=== PATIENT | female | born 1985 | race Caucasian/White ===

== ENCOUNTER 2019-04-14 16:43 | Emergency (ER) | payer OTHER, BC, MEDICAID ==
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
[2019-04-14 18:39] VITALS: BP 142/86; PULSE 99
== END 2019-04-14 17:58 | disposition home or self-care (01) ==
LOC: FB.ED 16:43
DX: S43.402A Unspecified sprain of left shoulder joint, initial encounter (principal); S00.83XA Contusion of other part of head, initial encounter; S80.12XA Contusion of left lower leg, initial encounter; S80.11XA Contusion of right lower leg, initial encounter; F32.9 Major depressive disorder, single episode, unspecified; Z88.2 Allergy status to sulfonamides; Z88.5 Allergy status to narcotic agent; Z79.899 Other long term (current) drug therapy; V44.5XXA Car driver injured in collision with heavy transport vehicle or bus in traffic accident, initial encounter; Y92.410 Unspecified street and highway as the place of occurrence of the external cause
CPT/HCPCS: 99283

== ENCOUNTER 2019-05-30 17:23 | Emergency (ER) | payer BC, MEDICAID ==
[2019-05-30] MEDS ORDERED: Lidocaine 2% 20 ML MDV INFILT ONE (17:24)
[2019-05-30 18:30] VITALS: BP 111/68; PULSE 78
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
== END 2019-05-30 17:56 | disposition home or self-care (01) ==
LOC: FB.ED 17:23
DX: S61.411A Laceration without foreign body of right hand, initial encounter (principal); K21.9 Gastro-esophageal reflux disease without esophagitis; F41.9 Anxiety disorder, unspecified; F32.9 Major depressive disorder, single episode, unspecified; E66.9 Obesity, unspecified; F17.210 Nicotine dependence, cigarettes, uncomplicated; Z68.33 Body mass index [BMI] 33.0-33.9, adult; Z88.2 Allergy status to sulfonamides; Z88.8 Allergy status to other drugs, medicaments and biological substances; Z79.899 Other long term (current) drug therapy; W23.0XXA Caught, crushed, jammed, or pinched between moving objects, initial encounter
CPT/HCPCS: 12001; 99282; J2001

== ENCOUNTER 2019-07-03 13:31 | Inpatient (IN) | payer BC, MEDICAID ==
[2019-07-03] MEDS ORDERED: Ketorolac 30 MG/ML SDV IVPUSH ONE ×2 (13:57→15:58)
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
[2019-07-03] MEDS ORDERED: Iopamidol 755 Mg/ML 100 ML Bottle IV ONE (16:22)
[2019-07-03] MEDS ORDERED: Acetaminophen/HYDROcodone 325-5 MG Tab PO ONE (17:01)
[2019-07-03] MEDS ORDERED: Meperidine PF 100 MG/ML Syringe IV ONE ×2 (17:46→20:09)
[2019-07-03] MEDS ORDERED: Acetaminophen/HYDROcodone 325-5 MG Tab PO PRN (20:09)
[2019-07-03] MEDS ORDERED: diphenhydrAMINE 50 MG Cap PO ONE (20:31)
[2019-07-03] MEDS ORDERED: Sodium Chloride 0.9% 1,000 ML IV SCH (21:15)
[2019-07-03] MEDS ORDERED: diphenhydrAMINE 50 MG Cap ONE (21:40)
[2019-07-03] MEDS: Meperidine PF 50 MG/ML Syringe IVPUSH ONE (23:43)
[2019-07-04] MEDS: Sodium Chloride 0.9% 1,000 ML IV SCH ×3 (01:32→18:18)
[2019-07-04] MEDS ORDERED: diphenhydrAMINE 50 MG Cap PO ONE (02:29)
[2019-07-04] MEDS ORDERED: Meperidine PF 75 MG/ML Syringe IV ONE (06:15)
[2019-07-04] MEDS ORDERED: Sodium Chloride 0.9% 500 ML IV ONE (06:17)
[2019-07-04] MEDS ORDERED: Meperidine PF 50 MG/ML Syringe ONE (06:40)
[2019-07-04] MEDS: Meperidine PF 50 MG/ML Syringe IVPUSH ONE (06:47)
[2019-07-04] MEDS ORDERED: Meperidine PF 50 MG/ML Syringe IV ONE (07:00)
[2019-07-04] MEDS ORDERED: Iopamidol 755 Mg/ML 100 ML Bottle IV ONE (07:59)
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
[2019-07-04] MEDS ORDERED: fentaNYL 100 MCG/2 ML SDV IVPUSH PRN (09:23)
[2019-07-04] MEDS ORDERED: Naloxone 0.4 MG/ML SDV IVPUSH PRN (09:24)
[2019-07-04] MEDS: fentaNYL/Normal Saline 300 MCG/30 ML PCA Vial IV SCH ×2 (10:02→22:51)
[2019-07-05] MEDS: Sodium Chloride 0.9% 1,000 ML IV SCH ×2 (04:46→15:01)
[2019-07-05] MEDS ORDERED: Bisacodyl 10 MG Supp RECTAL ONE (07:46)
--- NOTE | 2019-07-05 07:46 | PCM.SURGPN ---
- General Info Date of Service: 07/05/19 POD#: 0 Functional Status: Reports: Pain Controlled, Ambulating, Urinating, Other ( notes constipation ) - Review of Systems Pulmonary: Reports: No Symptoms Cardiovascular: Reports: No Symptoms Gastrointestinal: Reports: No Symptoms - Patient Data Vitals - Most Recent: Last Vital Signs Temp 98.2 F 07/05/19 04:00 Pulse 79 07/05/19 04:00 Resp 17 07/05/19 04:00 BP 101/53 L 07/05/19 04:00 Pulse Ox 95 07/05/19 06:00 Weight - Most Recent: 94.393 kg I&O - Last 24 Hours: Intake & Output 07/04/19 07/05/19 07/05/19 22:59 06:59 14:59 Intake Total 417 756 Output Total 300 Balance 417 456 Lab Results Last 24 Hrs: Laboratory Results - last 24 hr 07/04/19 07/05/19 Range/Units 06:27 06:15 WBC 4.7 (4.5-12.0) X10-3/uL RBC 3.41 (3.23-5.20) x10(6)uL Hgb 8.6 L (11.5-15.5) g/dL Hct 26.8 L (30.0-51.3) % MCV 78.8 L (80-96) fL MCH 25.2 L (27.7-33.6) pg MCHC 32.0 L (32.2-35.4) g/dL RDW 13.4 (11.5-15.5) % Plt Count 209 (125-369) X10(3)uL MPV 8.0 (7.4-10.4) fL Neut % (Auto) 67.8 (46-82) % Lymph % (Auto) 25.3 (13-37) % [place] % (Auto) 4.6 (4-12) % Eos % (Auto) 2 (1.0-5.0) % Baso % (Auto) 0 (0-2) % Neut # (Auto) 3.2 (1.6-8.3) # Lymph # (Auto) 1.2 (0.6-5.0) # [place] # (Auto) 0.2 (0.0-1.3) # Eos # (Auto) 0.1 (0.0-0.8) # Baso # (Auto) 0.0 (0.0-0.2) # Blood Type B POSITIVE Gel Antibody Screen Negative Stephen Results Last 24 Hrs: Microbiology 07/03/19 18:44 Urine Culture - Preliminary Urine, Bladder MIXED POSITIVE JOSIE DAY 1 Med Orders - Current: Current Medications Diphenhydramine HCl (Benadryl) 25 mg IVPUSH Q6H PRN PRN Reason: Itching Fentanyl Citrate (Fentanyl In Ns 300 Mcg/30 Ml Tram Operator) 0 mcg IV ASDIRECTED SUSI; Protocol Last Admin: 07/04/19 10:02 Dose: 300 mcg Sodium Chloride (Normal Saline) 1,000 mls @ 100 mls/hr IV ASDIRECTED SUSI Last Admin: 07/05/19 04:46 Dose: 100 mls/hr Naloxone HCl (Narcan) 0.4 mg IVPUSH Q2M PRN PRN Reason: Respiratory Distress Discontinued Medications Hydrocodone Bitart/Acetaminophen ([place] 325-5 Mg) 1 tab PO ONETIME ONE Stop: 07/03/19 17:02 Last Admin: 07/03/19 17:08 Dose: 1 tab Hydrocodone Bitart/Acetaminophen ([place] 325-5 Mg) 1 tab PO Q6H PRN PRN Reason: Breakthrough Pain Last Admin: 07/03/19 23:10 Dose: 1 tab Diphenhydramine HCl (Benadryl) 50 mg PO ONETIME ONE Stop: 07/03/19 20:32 Last Admin: 07/03/19 21:42 Dose: 50 mg Diphenhydramine HCl (Benadryl) Confirm Administered Dose 50 mg .ROUTE .STK-MED ONE Stop: 07/03/19 21:41 Last Admin: 07/03/19 23:01 Dose: Not Given Diphenhydramine HCl (Benadryl) 50 mg PO ONETIME ONE Stop: 07/04/19 02:30 Last Admin: 07/04/19 02:35 Dose: 50 mg Fentanyl (Sublimaze) 50 mcg IVPUSH Q30M PRN PRN Reason: Pain Sodium Chloride (Normal Saline) 1,000 mls @ 250 mls/hr IV ASDIRECTED SUSI Stop: 07/04/19 00:25 Last Admin: 07/03/19 21:42 Dose: 250 mls/hr Sodium Chloride (Normal Saline) 500 mls @ 500 mls/hr IV BOLUS ONE Stop: 07/04/19 07:16 Last Admin: 07/04/19 06:38 Dose: 500 mls/hr Iopamidol (Isovue-370 (76%)) 100 ml IV . DIRECTED ONE Stop: 07/03/19 16:23 Last Admin: 07/03/19 18:10 Dose: 100 ml Iopamidol (Isovue-370 (76%)) 100 ml IV . DIRECTED ONE Stop: 07/04/19 08:00 Last Admin: 07/04/19 08:40 Dose: 100 ml Ketorolac Tromethamine (Toradol) 30 mg IVPUSH ONETIME ONE Stop: 07/03/19 13:58 Last Admin: 07/03/19 15:24 Dose: 30 mg Ketorolac Tromethamine (Toradol) 30 mg IVPUSH ONETIME ONE Stop: 07/03/19 15:59 Last Admin: 07/03/19 16:34 Dose: 30 mg Meperidine HCl (Demerol) 100 mg IV ONETIME ONE Stop: 07/03/19 17:47 Last Admin: 07/03/19 17:56 Dose: 100 mg Meperidine HCl (Demerol) 100 mg IV ONETIME ONE Stop: 07/03/19 20:10 Last Admin: 07/03/19 20:59 Dose: 100 mg Meperidine HCl (Demerol) 50 mg IVPUSH ONETIME ONE Stop: 07/03/19 22:51 Last Admin: 07/04/19 06:47 Dose: 50 mg Meperidine HCl (Meperitab) 50 mg PO ONETIME ONE Stop: 07/04/19 02:29 Last Admin: 07/04/19 02:35 Dose: 50 mg Meperidine HCl (Demerol) Confirm Administered Dose 50 mg .ROUTE .STK-MED ONE Stop: 07/04/19 06:41 Last Admin: 07/04/19 07:29 Dose: Not Given Meperidine HCl (Demerol) 50 mg IV ONETIME ONE Stop: 07/04/19 07:01 Last Admin: 07/04/19 08:03 Dose: 50 mg - Exam General: Alert, Oriented, Cooperative. No: Mild Distress Lungs: Clear to Auscultation, Normal Respiratory Effort Cardiovascular: Regular Rate, Regular Rhythm GI/Abdominal Exam: Normal Bowel Sounds, Soft, Non-Tender Sepsis Event Note - Evaluation Sepsis Screening Result: No Definite Risk - Focused Exam Vital Signs: Vital Signs Temp Temp Pulse Resp BP Pulse Ox 07/05/19 06:00 95 07/05/19 04:00 98.2 F 79 17 101/53 L 94 L 07/05/19 00:00 98.5 F 81 18 102/51 L 95 07/04/19 20:09 96 07/04/19 20:00 98.1 F 78 16 98/52 L 97 Date Exam was Performed: 07/05/19 Time Exam was Performed: 07:42 - Problem List & Annotations (1) Spleen hematoma-closed SNOMED Code(s): 786808729 Code(s): S36.029A - UNSPECIFIED CONTUSION OF SPLEEN, INITIAL ENCOUNTER Status: Acute Current Visit: Yes Annotation/Comment:: Admit to Observation, pain managment. 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 [RC] PER UNIT ROUTINE Care 07/04/19 09:24 Active Pulse Oximetry [RC] CONTINUOUS Care 07/04/19 09:24 Active CTA Abd Pelv w Cont [CT] Routine Exams 07/04/19 07:49 Taken Naloxone [Narcan] Med 07/04/19 09:24 Active 0.4 mg IVPUSH Q2M PRN diphenhydrAMINE [Benadryl] Med 07/04/19 11:16 Active 25 mg IVPUSH Q6H PRN fentaNYL/Normal Saline [fentaNYL in NS 300 MCG/30 ML Med 07/04/19 10:15 Active RAW MILL OPERATOR] See Protocol IV ASDIRECTED Medication Discontinuation Instructions [OM.PC] Stat Oth 07/04/19 09:24 Ordered Medication Orders Diphenhydramine HCl (Benadryl) 25 mg IVPUSH Q6H PRN PRN Reason: Itching Fentanyl Citrate (Fentanyl In Ns 300 Mcg/30 Ml Tram Operator) 0 mcg IV ASDIRECTED SUSI; Protocol Last Admin: 07/04/19 10:02 Dose: 300 mcg Sodium Chloride (Normal Saline) 1,000 mls @ 100 mls/hr IV ASDIRECTED [facility] Last Admin: 07/05/19 04:46 Dose: 100 mls/hr Infusion: 07/05/19 04:18 Dose: 100 mls/hr Admin: 07/04/19 18:18 Dose: 100 mls/hr Infusion: 07/04/19 17:57 Dose: 100 mls/hr Admin: 07/04/19 07:57 Dose: 100 mls/hr Infusion: 07/04/19 07:57 Dose: 100 mls/hr Admin: 07/04/19 01:32 Dose: 100 mls/hr Naloxone HCl (Narcan) 0.4 mg IVPUSH Q2M PRN PRN Reason: Respiratory Distress - Assessment Assessment (Free Text/Narrative):: Hgb has drifted however is hemodynamcally stable. no indication for the need for transfusion. 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
[2019-07-05] MEDS: fentaNYL/Normal Saline 300 MCG/30 ML PCA Vial IV SCH (16:37)
[2019-07-06] MEDS: Acetaminophen 325 MG Tab PO PRN ×2 (01:45→07:36)
[2019-07-06] MEDS: fentaNYL/Normal Saline 300 MCG/30 ML PCA Vial IV SCH (03:14)
--- NOTE | 2019-07-06 09:14 | PCM.SURGPN ---
- General Info Date of Service: 07/06/19 POD#: 0 Functional Status: Reports: Pain Controlled, Tolerating Diet, Ambulating - Review of Systems Systems Review Comment:: uneventful evening. no complaints. - Patient Data Vitals - Most Recent: Last Vital Signs Temp 98.0 F 07/06/19 04:00 Pulse 75 07/06/19 04:00 Resp 18 07/06/19 04:00 BP 109/58 L 07/06/19 04:00 Pulse Ox 97 07/06/19 04:00 Weight - Most Recent: 94.256 kg I&O - Last 24 Hours: Intake & Output 07/05/19 07/06/19 07/06/19 22:59 06:59 14:59 Intake Total 788 Balance 788 Stephen Results Last 24 Hrs: Microbiology 07/03/19 18:44 Urine Culture - Final Urine, Bladder MIXED POSITIVE JOSIE DAY 2 Med Orders - Current: Current Medications Acetaminophen (Tylenol) 650 mg PO Q4H PRN PRN Reason: Pain Last Admin: 07/06/19 07:36 Dose: 650 mg Diphenhydramine HCl (Benadryl) 25 mg IVPUSH Q6H PRN PRN Reason: Itching Fentanyl Citrate (Fentanyl In Ns 300 Mcg/30 Ml Messenger Floorperson) 0 mcg IV ASDIRECTED [facility]; Protocol Stop: 07/06/19 10:00 Last Admin: 07/06/19 03:14 Dose: 300 mcg Sodium Chloride (Normal Saline) 1,000 mls @ 50 mls/hr IV ASDIRECTED [facility] Last Admin: 07/05/19 15:01 Dose: 100 mls/hr Naloxone HCl (Narcan) 0.4 mg IVPUSH Q2M PRN PRN Reason: Respiratory Distress Discontinued Medications Hydrocodone Bitart/Acetaminophen ([place] 325-5 Mg) 1 tab PO ONETIME ONE Stop: 07/03/19 17:02 Last Admin: 07/03/19 17:08 Dose: 1 tab Hydrocodone Bitart/Acetaminophen ([place] 325-5 Mg) 1 tab PO Q6H PRN PRN Reason: Breakthrough Pain Last Admin: 07/03/19 23:10 Dose: 1 tab Bisacodyl (Dulcolax) 10 mg RECTAL ONETIME ONE Stop: 07/05/19 07:47 Last Admin: 07/05/19 09:13 Dose: 10 mg Diphenhydramine HCl (Benadryl) 50 mg PO ONETIME ONE Stop: 07/03/19 20:32 Last Admin: 07/03/19 21:42 Dose: 50 mg Diphenhydramine HCl (Benadryl) Confirm Administered Dose 50 mg .ROUTE .STK-MED ONE Stop: 07/03/19 21:41 Last Admin: 07/03/19 23:01 Dose: Not Given Diphenhydramine HCl (Benadryl) 50 mg PO ONETIME ONE Stop: 07/04/19 02:30 Last Admin: 07/04/19 02:35 Dose: 50 mg Fentanyl (Sublimaze) 50 mcg IVPUSH Q30M PRN PRN Reason: Pain Sodium Chloride (Normal Saline) 1,000 mls @ 250 mls/hr IV ASDIRECTED [facility] Stop: 07/04/19 00:25 Last Admin: 07/03/19 21:42 Dose: 250 mls/hr Sodium Chloride (Normal Saline) 500 mls @ 500 mls/hr IV BOLUS ONE Stop: 07/04/19 07:16 Last Admin: 07/04/19 06:38 Dose: 500 mls/hr Iopamidol (Isovue-370 (76%)) 100 ml IV . DIRECTED ONE Stop: 07/03/19 16:23 Last Admin: 07/03/19 18:10 Dose: 100 ml Iopamidol (Isovue-370 (76%)) 100 ml IV . DIRECTED ONE Stop: 07/04/19 08:00 Last Admin: 07/04/19 08:40 Dose: 100 ml Ketorolac Tromethamine (Toradol) 30 mg IVPUSH ONETIME ONE Stop: 07/03/19 13:58 Last Admin: 07/03/19 15:24 Dose: 30 mg Ketorolac Tromethamine (Toradol) 30 mg IVPUSH ONETIME ONE Stop: 07/03/19 15:59 Last Admin: 07/03/19 16:34 Dose: 30 mg Meperidine HCl (Demerol) 100 mg IV ONETIME ONE Stop: 07/03/19 17:47 Last Admin: 07/03/19 17:56 Dose: 100 mg Meperidine HCl (Demerol) 100 mg IV ONETIME ONE Stop: 07/03/19 20:10 Last Admin: 07/03/19 20:59 Dose: 100 mg Meperidine HCl (Demerol) 50 mg IVPUSH ONETIME ONE Stop: 07/03/19 22:51 Last Admin: 07/04/19 06:47 Dose: 50 mg Meperidine HCl (Meperitab) 50 mg PO ONETIME ONE Stop: 07/04/19 02:29 Last Admin: 07/04/19 02:35 Dose: 50 mg Meperidine HCl (Demerol) Confirm Administered Dose 50 mg .ROUTE .STK-MED ONE Stop: 07/04/19 06:41 Last Admin: 07/04/19 07:29 Dose: Not Given Meperidine HCl (Demerol) 50 mg IV ONETIME ONE Stop: 07/04/19 07:01 Last Admin: 07/04/19 08:03 Dose: 50 mg - Exam General: Alert, Oriented, Cooperative, No Acute Distress Lungs: Clear to Auscultation, Normal Respiratory Effort Cardiovascular: Regular Rate, Regular Rhythm GI/Abdominal Exam: Normal Bowel Sounds, Soft, Non-Tender Skin: Warm, Dry, Intact Sepsis Event Note - Evaluation Sepsis Screening Result: No Definite Risk - Focused Exam Vital Signs: Vital Signs Temp Pulse Resp BP Pulse Ox 07/06/19 04:00 98.0 F 75 18 109/58 L 97 07/06/19 00:00 97.8 F 82 18 107/48 L 94 L Date Exam was Performed: 07/06/19 Time Exam was Performed: 09:11 - Problem List & Annotations (1) Spleen hematoma-closed SNOMED Code(s): 394822411 Code(s): S36.029A - UNSPECIFIED CONTUSION OF SPLEEN, INITIAL ENCOUNTER Status: Acute Current Visit: Yes Annotation/Comment:: Grade 3 splenic injury Qualifiers: Encounter type: initial encounter Qualified Code(s): S36.029A - Unspecified contusion of spleen, initial encounter - Problem List Review Problem List Initiated/Reviewed/Updated: Yes - My Orders Last 24 Hours: Active Orders 24 hr Category Date Time Status Communication Order [RC] ASDIRECTED Care 07/05/19 08:18 Active Regular Diet [DIET] Diet 07/05/19 Lunch Active Acetaminophen [Tylenol] Med 07/06/19 01:26 Active 650 mg PO Q4H PRN Medication Orders Acetaminophen (Tylenol) 650 mg PO Q4H PRN PRN Reason: Pain Last Admin: 07/06/19 07:36 Dose: 650 mg Admin: 07/06/19 01:45 Dose: 650 mg Diphenhydramine HCl (Benadryl) 25 mg IVPUSH Q6H PRN PRN Reason: Itching Fentanyl Citrate (Fentanyl In Ns 300 Mcg/30 Ml Messenger Floorperson) 0 mcg IV ASDIRECTED [facility]; Protocol Stop: 07/06/19 10:00 Last Admin: 07/06/19 03:14 Dose: 300 mcg Admin: 07/05/19 16:37 Dose: 300 mcg Admin: 07/04/19 22:51 Dose: 300 mcg Admin: 07/04/19 10:02 Dose: 300 mcg Sodium Chloride (Normal Saline) 1,000 mls @ 50 mls/hr IV ASDIRECTED [facility] Last Admin: 07/05/19 15:01 Dose: 100 mls/hr Infusion: 07/05/19 14:46 Dose: 100 mls/hr Admin: 07/05/19 04:46 Dose: 100 mls/hr Infusion: 07/05/19 04:18 Dose: 100 mls/hr Admin: 07/04/19 18:18 Dose: 100 mls/hr Infusion: 07/04/19 17:57 Dose: 100 mls/hr Admin: 07/04/19 07:57 Dose: 100 mls/hr Infusion: 07/04/19 07:57 Dose: 100 mls/hr Admin: 07/04/19 01:32 Dose: 100 mls/hr Naloxone HCl (Narcan) 0.4 mg IVPUSH Q2M PRN PRN Reason: Respiratory Distress - Assessment Assessment (Free Text/Narrative):: stable exam. 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
[2019-07-06] MEDS: Iron Polysaccharides Complex 150 MG Cap PO SCH (10:00)
[2019-07-06] MEDS: traMADol 50 MG Tab PO PRN ×3 (10:00→23:12)
[2019-07-06] MEDS: diphenhydrAMINE 50 MG/ML SDV IVPUSH PRN ×2 (10:50→18:41)
[2019-07-06] MEDS: Sodium Chloride 0.9% 10 ML Syringe FLUSH PRN ×2 (10:50→18:43)
[2019-07-06] MEDS: Pantoprazole 40 MG Tab.CR PO SCH (14:16)
[2019-07-06] MEDS ORDERED: Acetaminophen 325 MG Tab PO PRN (21:31)
[2019-07-07] MEDS: diphenhydrAMINE 50 MG/ML SDV IVPUSH PRN ×2 (00:36→07:55)
[2019-07-07] MEDS: Sodium Chloride 0.9% 10 ML Syringe FLUSH PRN (00:36)
[2019-07-07] MEDS: traMADol 50 MG Tab PO PRN (05:52)
[2019-07-07] MEDS: Pantoprazole 40 MG Tab.CR PO SCH (05:53)
[2019-07-07 08:30] VITALS: BP 99/59; PULSE 75
[2019-07-07] MEDS: Iron Polysaccharides Complex 150 MG Cap PO SCH (09:32)
[2019-07-07] MEDS ORDERED: Magnesium Hydroxide 400 MG/5 ML Susp 30 ML Cup PO PRN (09:46)
--- NOTE | 2019-07-07 10:46 | PCM.SURGPN ---
- General Info Date of Service: 07/07/19 - Review of Systems General: Reports: No Symptoms, Fever (did have a temp spike last pm no further sequelae ) Cardiovascular: Reports: No Symptoms Gastrointestinal: Reports: No Symptoms - Patient Data Vitals - Most Recent: Last Vital Signs Temp 97.9 F 07/07/19 08:00 Pulse 75 07/07/19 08:00 Resp 16 07/07/19 08:00 BP 99/59 L 07/07/19 08:00 Pulse Ox 94 L 07/07/19 08:00 Weight - Most Recent: 95.254 kg Lab Results Last 24 Hrs: Laboratory Results - last 24 hr 07/07/19 Range/Units 06:10 WBC 4.3 L (4.5-12.0) X10-3/uL RBC 3.58 (3.23-5.20) x10(6)uL Hgb 9.0 L (11.5-15.5) g/dL Hct 28.0 L (30.0-51.3) % MCV 78.2 L (80-96) fL MCH 25.0 L (27.7-33.6) pg MCHC 32.0 L (32.2-35.4) g/dL RDW 13.6 (11.5-15.5) % Plt Count 225 (125-369) X10(3)uL MPV 8.0 (7.4-10.4) fL Neut % (Auto) 65.6 (46-82) % Lymph % (Auto) 22.8 (13-37) % [place] % (Auto) 7.8 (4-12) % Eos % (Auto) 3 (1.0-5.0) % Baso % (Auto) 1 (0-2) % Neut # (Auto) 2.9 (1.6-8.3) # Lymph # (Auto) 1.0 (0.6-5.0) # [place] # (Auto) 0.3 (0.0-1.3) # Eos # (Auto) 0.1 (0.0-0.8) # Baso # (Auto) 0.0 (0.0-0.2) # Med Orders - Current: Current Medications Acetaminophen (Tylenol) 650 mg PO Q4H PRN PRN Reason: Fever Last Admin: 07/06/19 21:56 Dose: 650 mg Diphenhydramine HCl (Benadryl) 25 mg IVPUSH Q6H PRN PRN Reason: Itching Last Admin: 07/07/19 07:55 Dose: 25 mg Magnesium Hydroxide (Milk Of Magnesia) 30 ml PO DAILY PRN PRN Reason: Constipation Naloxone HCl (Narcan) 0.4 mg IVPUSH Q2M PRN PRN Reason: Respiratory Distress Pantoprazole Sodium (Protonix) 40 mg PO DAILY@0600 [facility] Last Admin: 07/07/19 05:53 Dose: 40 mg Polysaccharide Iron Complex (Ferrex 150) 150 mg PO DAILY [facility] Last Admin: 07/07/19 09:32 Dose: 150 mg Sodium Chloride (Saline Flush) 10 ml FLUSH ASDIRECTED PRN PRN Reason: Keep Vein Open Last Admin: 07/07/19 00:36 Dose: 10 ml Tramadol HCl (Ultram) 100 mg PO Q6H PRN PRN Reason: Pain Last Admin: 07/07/19 05:52 Dose: 100 mg Discontinued Medications Acetaminophen (Tylenol) 650 mg PO Q4H PRN PRN Reason: Pain Last Admin: 07/06/19 07:36 Dose: 650 mg Hydrocodone Bitart/Acetaminophen ([place] 325-5 Mg) 1 tab PO ONETIME ONE Stop: 07/03/19 17:02 Last Admin: 07/03/19 17:08 Dose: 1 tab Hydrocodone Bitart/Acetaminophen ([place] 325-5 Mg) 1 tab PO Q6H PRN PRN Reason: Breakthrough Pain Last Admin: 07/03/19 23:10 Dose: 1 tab Bisacodyl (Dulcolax) 10 mg RECTAL ONETIME ONE Stop: 07/05/19 07:47 Last Admin: 07/05/19 09:13 Dose: 10 mg Diphenhydramine HCl (Benadryl) 50 mg PO ONETIME ONE Stop: 07/03/19 20:32 Last Admin: 07/03/19 21:42 Dose: 50 mg Diphenhydramine HCl (Benadryl) Confirm Administered Dose 50 mg .ROUTE .STK-MED ONE Stop: 07/03/19 21:41 Last Admin: 07/03/19 23:01 Dose: Not Given Diphenhydramine HCl (Benadryl) 50 mg PO ONETIME ONE Stop: 07/04/19 02:30 Last Admin: 07/04/19 02:35 Dose: 50 mg Fentanyl (Sublimaze) 50 mcg IVPUSH Q30M PRN PRN Reason: Pain Fentanyl Citrate (Fentanyl In Ns 300 Mcg/30 Ml Control Clerk) 0 mcg IV ASDIRECTED [facility]; Protocol Stop: 07/06/19 10:00 Last Admin: 07/06/19 03:14 Dose: 300 mcg Sodium Chloride (Normal Saline) 1,000 mls @ 250 mls/hr IV ASDIRECTED [facility] Stop: 07/04/19 00:25 Last Admin: 07/03/19 21:42 Dose: 250 mls/hr Sodium Chloride (Normal Saline) 1,000 mls @ 50 mls/hr IV [facility]RECTED [facility] Last Admin: 07/05/19 15:01 Dose: 100 mls/hr Sodium Chloride (Normal Saline) 500 mls @ 500 mls/hr IV BOLUS ONE Stop: 07/04/19 07:16 Last Admin: 07/04/19 06:38 Dose: 500 mls/hr Iopamidol (Isovue-370 (76%)) 100 ml IV . DIRECTED ONE Stop: 07/03/19 16:23 Last Admin: 07/03/19 18:10 Dose: 100 ml Iopamidol (Isovue-370 (76%)) 100 ml IV . DIRECTED ONE Stop: 07/04/19 08:00 Last Admin: 07/04/19 08:40 Dose: 100 ml Ketorolac Tromethamine (Toradol) 30 mg IVPUSH ONETIME ONE Stop: 07/03/19 13:58 Last Admin: 07/03/19 15:24 Dose: 30 mg Ketorolac Tromethamine (Toradol) 30 mg IVPUSH ONETIME ONE Stop: 07/03/19 15:59 Last Admin: 07/03/19 16:34 Dose: 30 mg Meperidine HCl (Demerol) 100 mg IV ONETIME ONE Stop: 07/03/19 17:47 Last Admin: 07/03/19 17:56 Dose: 100 mg Meperidine HCl (Demerol) 100 mg IV ONETIME ONE Stop: 07/03/19 20:10 Last Admin: 07/03/19 20:59 Dose: 100 mg Meperidine HCl (Demerol) 50 mg IVPUSH ONETIME ONE Stop: 07/03/19 22:51 Last Admin: 07/04/19 06:47 Dose: 50 mg Meperidine HCl (Meperitab) 50 mg PO ONETIME ONE Stop: 07/04/19 02:29 Last Admin: 07/04/19 02:35 Dose: 50 mg Meperidine HCl (Demerol) Confirm Administered Dose 50 mg .ROUTE .STK-MED ONE Stop: 07/04/19 06:41 Last Admin: 07/04/19 07:29 Dose: Not Given Meperidine HCl (Demerol) 50 mg IV ONETIME ONE Stop: 07/04/19 07:01 Last Admin: 07/04/19 08:03 Dose: 50 mg - Exam General: Alert, Oriented Lungs: Clear to Auscultation, Normal Respiratory Effort Cardiovascular: Regular Rate, Regular Rhythm GI/Abdominal Exam: Normal Bowel Sounds, Soft, Non-Tender Sepsis Event Note - Evaluation Sepsis Screening Result: No Definite Risk - Focused Exam Vital Signs: Vital Signs Temp Temp Pulse Resp BP Pulse Ox 07/07/19 08:00 97.9 F 75 16 99/59 L 94 L 07/07/19 04:00 98.7 F 78 18 110/62 98 07/06/19 23:40 99.1 F 80 16 97/54 L 93 L Date Exam was Performed: 07/07/19 Time Exam was Performed: 10:45 - Problem List & Annotations (1) Spleen hematoma-closed SNOMED Code(s): 090633150 Code(s): S36.029A - UNSPECIFIED CONTUSION OF SPLEEN, INITIAL ENCOUNTER Status: Acute Current Visit: Yes Annotation/Comment:: Grade 3 splenic injury Qualifiers: Encounter type: initial encounter Qualified Code(s): S36.029A - Unspecified contusion of spleen, initial encounter - Problem List Review Problem List Initiated/Reviewed/Updated: Yes - My Orders Last 24 Hours: Active Orders 24 hr Category Date Time Status Acetaminophen [Tylenol] Med 07/06/19 21:31 Active 650 mg PO Q4H PRN Magnesium Hydroxide [Milk of Magnesia] Med 07/07/19 09:46 Active 30 ml PO DAILY PRN Pantoprazole [ProTONIX] Med 07/06/19 14:15 Active 40 mg PO DAILY@0600 Sodium Chloride 0.9% [Saline Flush] Med 07/06/19 10:49 Active 10 ml FLUSH ASDIRECTED PRN Medication Orders Acetaminophen (Tylenol) 650 mg PO Q4H PRN PRN Reason: Fever Last Admin: 07/06/19 21:56 Dose: 650 mg Diphenhydramine HCl (Benadryl) 25 mg IVPUSH Q6H PRN PRN Reason: Itching Last Admin: 07/07/19 07:55 Dose: 25 mg Admin: 07/07/19 00:36 Dose: 25 mg Admin: 07/06/19 18:41 Dose: 25 mg Admin: 07/06/19 10:50 Dose: 25 mg Magnesium Hydroxide (Milk Of Magnesia) 30 ml PO DAILY PRN PRN Reason: Constipation Naloxone HCl (Narcan) 0.4 mg IVPUSH Q2M PRN PRN Reason: Respiratory Distress Pantoprazole Sodium (Protonix) 40 mg PO DAILY@0600 [facility] Last Admin: 07/07/19 05:53 Dose: 40 mg Admin: 07/06/19 14:16 Dose: 40 mg Polysaccharide Iron Complex (Ferrex 150) 150 mg PO DAILY [facility] Last Admin: 07/07/19 09:32 Dose: 150 mg Admin: 07/06/19 10:00 Dose: 150 mg Sodium Chloride (Saline Flush) 10 ml FLUSH ASDIRECTED PRN PRN Reason: Keep Vein Open Last Admin: 07/07/19 00:36 Dose: 10 ml Admin: 07/06/19 18:43 Dose: 10 ml Admin: 07/06/19 10:50 Dose: 10 ml Tramadol HCl (Ultram) 100 mg PO Q6H PRN PRN Reason: Pain Last Admin: 07/07/19 05:52 Dose: 100 mg Admin: 07/06/19 23:12 Dose: 100 mg Admin: 07/06/19 16:54 Dose: 100 mg Admin: 07/06/19 10:00 Dose: 100 mg - Plan Plan (Free Text/Narrative):: ready for discharge
--- NOTE | 2019-07-07 10:50 | PCM.DCSUM1 ---
Discharge Summary - Hospital Course Free Text/Narrative:: pt admitted for observation. Repeat CT scan was negative for active bleeding. She has remained hemodynamically stable. Demonstrated good pain control. Hgb has remained stable. [place] well enough to be sent home. Diagnosis: Stroke: No - Discharge Data Discharge Date: 07/07/19 Discharge Disposition: Home, Self-Care 01 Condition: Good - Referral to Home Health Primary Care Physician: Tolu Hartmann MD - Discharge Diagnosis/Problem(s) (1) Spleen hematoma-closed SNOMED Code(s): 419639402 ICD Code: S36.029A - UNSPECIFIED CONTUSION OF SPLEEN, INITIAL ENCOUNTER Status: Acute Current Visit: Yes Problem Details: Grade 3 splenic injury Qualifiers: Encounter type: initial encounter Qualified Code(s): S36.029A - Unspecified contusion of spleen, initial encounter - Patient Summary/Data Consults: Consultations 07/03/19 19:15 Consult to Physician [CONS] Urgent Consulting Provider: Amaury Duckworth Courtesy Call Completed to Consulting Physician: Yes Reason for Consult: post traumatic splenic hematoma Person Notified: Dr Crump Date Notified: 07/03/19 Time Notified: 19:00 Special Instructions: see in am - Discharge Plan *PRESCRIPTION DRUG MONITORING PROGRAM REVIEWED*: Not Applicable *COPY OF PRESCRIPTION DRUG MONITORING REPORT IN PATIENT IVON: Not Applicable Prescriptions/Med Rec: traMADol [Ultram] 100 mg PO Q6H PRN #12 tablet PRN Reason: Pain Home Medications: Home Meds FLUoxetine [PROzac] 40 mg PO DAILY 10/02/17 [History] Pantoprazole [ProTONIX] 40 mg PO DAILY 10/02/17 [History] Multivitamin [Multivitamins] 1 each PO DAILY 04/14/19 [History] traMADol [Ultram] 100 mg PO Q6H PRN #12 tablet 07/07/19 [Rx] Patient Handouts: Enlarged Spleen, Splenic Injury, Venous Thromboembolism Prevention Forms: ED Department Discharge Referrals: Tolu Hartmann MD [Primary Care Provider] - - Discharge Summary/Plan Comment DC Time >30 min.: No - Patient Data Vitals - Most Recent: Last Vital Signs Temp 97.9 F 07/07/19 08:00 Pulse 75 07/07/19 08:00 Resp 16 07/07/19 08:00 BP 99/59 L 07/07/19 08:00 Pulse Ox 94 L 07/07/19 08:00 Weight - Most Recent: 95.254 kg Lab Results - Last 24 hrs: Laboratory Results - last 24 hr 07/07/19 Range/Units 06:10 WBC 4.3 L (4.5-12.0) X10-3/uL RBC 3.58 (3.23-5.20) x10(6)uL Hgb 9.0 L (11.5-15.5) g/dL Hct 28.0 L (30.0-51.3) % MCV 78.2 L (80-96) fL MCH 25.0 L (27.7-33.6) pg MCHC 32.0 L (32.2-35.4) g/dL RDW 13.6 (11.5-15.5) % Plt Count 225 (125-369) X10(3)uL MPV 8.0 (7.4-10.4) fL Neut % (Auto) 65.6 (46-82) % Lymph % (Auto) 22.8 (13-37) % [place] % (Auto) 7.8 (4-12) % Eos % (Auto) 3 (1.0-5.0) % Baso % (Auto) 1 (0-2) % Neut # (Auto) 2.9 (1.6-8.3) # Lymph # (Auto) 1.0 (0.6-5.0) # [place] # (Auto) 0.3 (0.0-1.3) # Eos # (Auto) 0.1 (0.0-0.8) # Baso # (Auto) 0.0 (0.0-0.2) # Med Orders - Current: Current Medications Acetaminophen (Tylenol) 650 mg PO Q4H PRN PRN Reason: Fever Last Admin: 07/06/19 21:56 Dose: 650 mg Diphenhydramine HCl (Benadryl) 25 mg IVPUSH Q6H PRN PRN Reason: Itching Last Admin: 07/07/19 07:55 Dose: 25 mg Magnesium Hydroxide (Milk Of Magnesia) 30 ml PO DAILY PRN PRN Reason: Constipation Naloxone HCl (Narcan) 0.4 mg IVPUSH Q2M PRN PRN Reason: Respiratory Distress Pantoprazole Sodium (Protonix) 40 mg PO DAILY@0600 [facility] Last Admin: 07/07/19 05:53 Dose: 40 mg Polysaccharide Iron Complex (Ferrex 150) 150 mg PO DAILY [facility] Last Admin: 07/07/19 09:32 Dose: 150 mg Sodium Chloride (Saline Flush) 10 ml FLUSH ASDIRECTED PRN PRN Reason: Keep Vein Open Last Admin: 07/07/19 00:36 Dose: 10 ml Tramadol HCl (Ultram) 100 mg PO Q6H PRN PRN Reason: Pain Last Admin: 07/07/19 05:52 Dose: 100 mg Discontinued Medications Acetaminophen (Tylenol) 650 mg PO Q4H PRN PRN Reason: Pain Last Admin: 07/06/19 07:36 Dose: 650 mg Hydrocodone Bitart/Acetaminophen ([place] 325-5 Mg) 1 tab PO ONETIME ONE Stop: 07/03/19 17:02 Last Admin: 07/03/19 17:08 Dose: 1 tab Hydrocodone Bitart/Acetaminophen ([place] 325-5 Mg) 1 tab PO Q6H PRN PRN Reason: Breakthrough Pain Last Admin: 07/03/19 23:10 Dose: 1 tab Bisacodyl (Dulcolax) 10 mg RECTAL ONETIME ONE Stop: 07/05/19 07:47 Last Admin: 07/05/19 09:13 Dose: 10 mg Diphenhydramine HCl (Benadryl) 50 mg PO ONETIME ONE Stop: 07/03/19 20:32 Last Admin: 07/03/19 21:42 Dose: 50 mg Diphenhydramine HCl (Benadryl) Confirm Administered Dose 50 mg .ROUTE .STK-MED ONE Stop: 07/03/19 21:41 Last Admin: 07/03/19 23:01 Dose: Not Given Diphenhydramine HCl (Benadryl) 50 mg PO ONETIME ONE Stop: 07/04/19 02:30 Last Admin: 07/04/19 02:35 Dose: 50 mg Fentanyl (Sublimaze) 50 mcg IVPUSH Q30M PRN PRN Reason: Pain Fentanyl Citrate (Fentanyl In Ns 300 Mcg/30 Ml Press Set Up) 0 mcg IV ASDIRECTED [facility]; Protocol Stop: 07/06/19 10:00 Last Admin: 07/06/19 03:14 Dose: 300 mcg Sodium Chloride (Normal Saline) 1,000 mls @ 250 mls/hr IV ASDIRECTED [facility] Stop: 07/04/19 00:25 Last Admin: 07/03/19 21:42 Dose: 250 mls/hr Sodium Chloride (Normal Saline) 1,000 mls @ 50 mls/hr IV ASDIRECTED [facility] Last Admin: 07/05/19 15:01 Dose: 100 mls/hr Sodium Chloride (Normal Saline) 500 mls @ 500 mls/hr IV BOLUS ONE Stop: 07/04/19 07:16 Last Admin: 07/04/19 06:38 Dose: 500 mls/hr Iopamidol (Isovue-370 (76%)) 100 ml IV . DIRECTED ONE Stop: 07/03/19 16:23 Last Admin: 07/03/19 18:10 Dose: 100 ml Iopamidol (Isovue-370 (76%)) 100 ml IV . DIRECTED ONE Stop: 07/04/19 08:00 Last Admin: 07/04/19 08:40 Dose: 100 ml Ketorolac Tromethamine (Toradol) 30 mg IVPUSH ONETIME ONE Stop: 07/03/19 13:58 Last Admin: 07/03/19 15:24 Dose: 30 mg Ketorolac Tromethamine (Toradol) 30 mg IVPUSH ONETIME ONE Stop: 07/03/19 15:59 Last Admin: 07/03/19 16:34 Dose: 30 mg Meperidine HCl (Demerol) 100 mg IV ONETIME ONE Stop: 07/03/19 17:47 Last Admin: 07/03/19 17:56 Dose: 100 mg Meperidine HCl (Demerol) 100 mg IV ONETIME ONE Stop: 07/03/19 20:10 Last Admin: 07/03/19 20:59 Dose: 100 mg Meperidine HCl (Demerol) 50 mg IVPUSH ONETIME ONE Stop: 07/03/19 22:51 Last Admin: 07/04/19 06:47 Dose: 50 mg Meperidine HCl (Meperitab) 50 mg PO ONETIME ONE Stop: 07/04/19 02:29 Last Admin: 07/04/19 02:35 Dose: 50 mg Meperidine HCl (Demerol) Confirm Administered Dose 50 mg .ROUTE .STK-MED ONE Stop: 07/04/19 06:41 Last Admin: 07/04/19 07:29 Dose: Not Given Meperidine HCl (Demerol) 50 mg IV ONETIME ONE Stop: 07/04/19 07:01 Last Admin: 07/04/19 08:03 Dose: 50 mg *Q Meaningful Use (DIS) - VTE *Q VTE Pharmacological Contraindications *Q: Risk of Bleeding
== END 2019-07-07 11:30 | disposition home or self-care (01) | DRG 663 ==
LOC: FB.ED 13:31 → FB.MS 19:07 → OBSVTOIN 07-04 09:11
PROVIDERS: ADMIT Family Medicine; ATTEND Family Medicine
DX: S36.029A Unspecified contusion of spleen, initial encounter (principal); K21.9 Gastro-esophageal reflux disease without esophagitis; E66.9 Obesity, unspecified; D64.9 Anemia, unspecified; F41.9 Anxiety disorder, unspecified; F32.9 Major depressive disorder, single episode, unspecified; F17.200 Nicotine dependence, unspecified, uncomplicated; Z88.5 Allergy status to narcotic agent; Z88.2 Allergy status to sulfonamides; V89.2XXA Person injured in unspecified motor-vehicle accident, traffic, initial encounter; Z3A.36 36 weeks gestation of pregnancy
CPT/HCPCS: 36415; 71046; 71275; 74174; 80053; 81001; 84484; 85025; 85379; 86140; 86850; 86900; 86901; 87086; 93005; 94150; A9270-GY; J1200; J1885; J2175; J3010; J7030; J7040; Q9967

== ENCOUNTER 2020-12-15 21:11 | Emergency (ER) | payer OTHER, MEDICAID ==
[2020-12-15] MEDS ORDERED: Lidocaine 1% 20 ML MDV INFILT ONE (21:12)
--- NOTE | 2020-12-15 21:45 | EDM.PDOC ---
ED HPI GENERAL MEDICAL PROBLEM - General Stated Complaint: CUT FOOT Time Seen by Provider: 12/15/20 21:45 Source of Information: Reports: Patient History Limitations: Reports: No Limitations - History of Present Illness INITIAL COMMENTS - FREE TEXT/NARRATIVE: 35-year-old female who reports she was trimming her hedges at approximately 8 PM tonight and her 3-year-old daughter came out to ask her question and when she looked over to talk to her daughter, she reports that the hedge clippers slipped and fell striking the lateral top of her right ankle causing a laceration. No other injuries. The bleeding has been controlled with direct pressure. She reports minimal pain in the area that is sharp and stinging pain. She would rate the pain is 3/10. It is worse when she palpates the area. She has been able to ambulate. She is able to move her right foot well without any limitations. She has normal sensation in the toes of her right foot. There are no other associated signs or symptoms. There are no other modifying factors. 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.) - Related Data Allergies Allergy/AdvReac Type Severity Reaction Status Date / Time hydrocodone Allergy Itching Verified 12/15/20 21:56 Sulfa (Sulfonamide Allergy Nausea and Verified 12/15/20 21:56 Antibiotics) Vomiting Home Meds: Home Meds FLUoxetine [PROzac] 40 mg PO DAILY 10/02/17 [History] Pantoprazole [ProTONIX] 40 mg PO DAILY 10/02/17 [History] Multivitamin [Multivitamins] 1 each PO DAILY 04/14/19 [History] traMADol [Ultram] 100 mg PO Q6H PRN #12 tablet 07/07/19 [Rx] Past Medical History HEENT History: Reports: Impaired Vision Other HEENT History: corrective glasses Gastrointestinal History: Reports: GERD Other Gastrointestinal History: heart burn 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, Musculoskeletal History: Reports: Fracture, Other (See Below) Other Musculoskeletal History: hx fx R ankle, fx L wrist, hx carpal tunnel L wrist Psychiatric History: Reports: Anxiety, Depression Endocrine/Metabolic History: Reports: Obesity/BMI 30+ Hematologic History: Reports: Anemia Other Hematologic History: hemoglobin is at a nine Dermatologic History: Reports: Other (See Below) Other Dermatologic History: cyst removed on face - Infectious Disease History Infectious Disease History: Reports: Chicken Pox - Past Surgical History HEENT Surgical History: Reports: Oral Surgery Female Surgical History: Reports: Breast Reduction Social & Family History - Family History HEENT: Reports: Impaired Vision Cardiac: Reports: Hypertension Respiratory: Reports: Asthma, COPD GI: Reports: Colon Polyps, Diverticulosis, GERD OBGYN: Reports: , Other (See Below) Other OBGYN Family History: miscarriage, mother Musculoskeletal: Reports: Arthritis Neurological: Reports: Alzheimers Disease Psychiatric: Reports: Anxiety, Depression Immunologic: Reports: None Oncologic: Reports: Brain, Breast, Colon, Esophageal Other Oncologic Family History: uncle, aunts, grandmother, mom - Tobacco Use Tobacco Use Status *Q: Current Every Day Tobacco User - Caffeine Use Caffeine Use: Reports: Coffee Other Caffeine Use: 3 cups daily - Alcohol Use Alcohol Use History: No Review of Systems - Review of Systems Review Of Systems: See Below Constitutional: Denies: Chills, Fever Eyes: Denies: Photophobia, Vision Change Ears: Denies: Pain Nose: Denies: Congestion, Clear Discharge Mouth/Throat: Denies: Bleeding, Lip Swelling Respiratory: Denies: Shortness of Breath, Cough Cardiovascular: Denies: Chest Pain GI/Abdominal: Denies: Abdominal Pain, Nausea, Vomiting Genitourinary: Denies: Dysuria, Painful Urination Musculoskeletal: Denies: Neck Pain, Shoulder Pain Skin: Reports: Wound. Denies: Diaphoresis Neurological: Reports: Headache. Denies: Confusion, Dizziness Psychiatric: Reports: Anxiety. Denies: Confusion ED EXAM, GENERAL - Physical Exam Exam: See Below Exam Limited By: No Limitations General Appearance: Alert, WD/WN, Mild Distress Eye Exam: Bilateral Eye: EOMI, Normal Inspection (Sclera are anicteric), PERRL Ears: Normal External Exam, Hearing Grossly Normal Ear Exam: Bilateral Ear: Auricle Normal Nose: Normal Inspection, Normal Mucosa, No Blood Throat/Mouth: Normal Inspection, Normal Lips, Normal Oropharynx, Normal Voice, No Airway Compromise Head: Atraumatic, Normocephalic Neck: Normal Inspection, Supple, Non-Tender, Full Range of Motion Respiratory/Chest: No Respiratory Distress, Lungs Clear, Normal Breath Sounds, No Accessory Muscle Use, Chest Non-Tender Cardiovascular: Normal Peripheral Pulses, Regular Rate, Rhythm, No Murmur Peripheral Pulses: 2+: Radial (L), Radial (R), Dorsalis Pedis (L), Dorsalis Pedis (R) GI/Abdominal: Normal Bowel Sounds, Soft, Non-Tender, No Mass Back Exam: Normal Inspection, Full Range of Motion Neurological: Alert, Oriented, Normal Cognition Psychiatric: Normal Affect Skin Exam: Warm, Dry, Normal Color, No Rash, Wound/Incision (4 cm laceration to the anterior and lateral aspect of the right ankle. It goes to the subcutaneous tissue and down to the level of the tendon but there is no tendon involvement noted. She has full flexion and extension in the foot without limitation.) ED TRAUMA EXTREMITY PROCEDURES - Laceration/Wound Repair Right Anterior Lateral Ankle Appearance: Subcutaneous Distal NVT: Neuro & Vascular Intact, No Tendon Injury Anesthetic Type: Local Local Anesthesia - Lidocaine (Xylocaine): 1% Plain Local Anesthetic Volume: 5cc (Good anesthesia and no complications.) Skin Prep: Saline Saline Irrigation (cc's): 500 Exploration/Debridement/Repair: Wound Explored, No Foreign Material Found Closed With: Sutures Suture Size: 4-0 # of Sutures: 4 Suture Type: Prolene, Interrupted, Simple, Mattress Tetanus Status Addressed: Yes (Asians last tetanus immunization was in 2018, so she is up-to-date.) Complications: No Progress/Comments: Combination of simple interrupted and vertical mattress interrupted sutures are placed. Laceration was 4 cm in length. The patient tolerated this well and there were no apparent palpitations. Course - Vital Signs Last Recorded V/S: Last Vital Signs Temp 36.6 C 12/15/20 21:15 Pulse 78 12/15/20 21:15 Resp 18 12/15/20 21:15 BP 113/90 12/15/20 21:15 Pulse Ox 99 12/15/20 21:15 - Orders/Labs/Meds Meds: Medications Discontinued Medications Generic Name Dose Route Start Last Admin Trade Name Freq PRN Reason Stop Dose Admin Bacitracin 1 dose 12/15/20 22:29 12/15/20 22:54 Bacitracin Oint 1 Gm U/D Packet TOP 12/15/20 22:30 1 dose ONETIME ONE Administration - Re-Assessments/Exams Free Text/Narrative Re-Assessment/Exam: 12/15/20 22:25: Laceration to right ankle was repaired. Tendons were apparent in the base of the wound but there were no tendon lacerations. An appropriate supportive dressing was applied by the nursing staff with bacitracin. Wound care instructions were given to the patient. Precautions and reasons for return to the emergency department were discussed with the patient while she was in the emergency department were detailed in the patient's discharge instructions. Departure - Departure Time of Disposition: 22:35 Disposition: Home, Self-Care 01 Condition: Good ( improved) Clinical Impression: Laceration of right ankle Qualifiers: Encounter type: initial encounter Qualified Code(s): S91.011A - Laceration without foreign body, right ankle, initial encounter - Discharge Information Instructions: Laceration Care, Adult, [id number] Referrals: PCP,None [Primary Care Provider] - Forms: ED Department Discharge Additional Instructions: * Do not get the wound wet for 3 days. You may use damp cloth to clean the wound. After 3 days, you may get the wound wet but do not immerse the wound in water until the sutures are out. Suture removal in 10 days. No strenuous use with your foot or ankle for the next 2 weeks. You did not appear to have any tendon injuries or any injury to any crucial structures. Th cut did go down to the level of the tendons but did not appear to injure the tendons. Back to the emergency department for marked increase in pain, redness, increased swelling, fever or any other concerning signs or symptoms. Sepsis Event Note (ED) - Focused Exam Vital Signs: Vital Signs Temp Pulse Resp BP Pulse Ox 12/15/20 21:15 36.6 C 78 18 113/90 99
[2020-12-15 21:59] VITALS: BP 113/90; PULSE 78
[2020-12-15] MEDS ORDERED: Bacitracin Oint 1 GM U/D Packet TOP ONE (22:29)
== END 2020-12-15 23:00 | disposition home or self-care (01) ==
LOC: FB.ED 21:11
DX: S91.011A Laceration without foreign body, right ankle, initial encounter (principal); K21.9 Gastro-esophageal reflux disease without esophagitis; E66.9 Obesity, unspecified; Z68.30 Body mass index [BMI] 30.0-30.9, adult; Z88.5 Allergy status to narcotic agent; Z88.2 Allergy status to sulfonamides; W26.8XXA Contact with other sharp object(s), not elsewhere classified, initial encounter
CPT/HCPCS: 12002; 99282-25

== ENCOUNTER 2020-12-23 13:17 | Emergency (ER) | payer OTHER, MEDICAID ==
[2020-12-23] MEDS ORDERED: Cyclobenzaprine 10 MG Tab PO ONE (13:18)
[2020-12-23] MEDS ORDERED: Acetaminophen/oxyCODONE 325-5 MG Tab PO ONE (13:18)
--- NOTE | 2020-12-23 13:26 | EDM.PDOC ---
ED HPI GENERAL MEDICAL PROBLEM - General Stated Complaint: BACK PAIN Time Seen by Provider: 12/23/20 13:26 Source of Information: Reports: Patient History Limitations: Reports: No Limitations - History of Present Illness INITIAL COMMENTS - FREE TEXT/NARRATIVE: 35-year-old female reports when she awoke this morning at about 10:30 AM she couldn't get out of bed because she was having pain all over her back. She reports mainly was from her mid back down to the top of her buttock area. She reports that there was a sharp and spasm-type pain that is worse when she attempts any movement she tries to bend her legs or attempts to walk. It does not radiate. She has no pain going down her legs. There is no weakness or numbness of her legs. She has had no bowel or bladder control problems. There've been no fevers or chills. 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 She has had no abdominal pain. There has been no hematuria or dysuria. She rates the pain as an 8/10. It does spasm and go up to a 10/10 at times. She presents to the emergency department via ambulance. She reports that she could not get out of bed. She states that she did have an episode like this about 10 years ago and she had to come in by ambulance at that time as well There are no other associated signs or symptoms. There are no other modifying factors. 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.) Middle Back Pain Score (Numeric/FACES): 7 - Related Data Allergies Allergy/AdvReac Type Severity Reaction Status Date / Time Sulfa (Sulfonamide Allergy Nausea and Verified 12/15/20 21:56 Antibiotics) Vomiting tramadol Allergy Itching Verified 12/23/20 15:46 Home Meds: Home Meds FLUoxetine [PROzac] 40 mg PO DAILY 10/02/17 [History] Pantoprazole [ProTONIX] 40 mg PO DAILY 10/02/17 [History] Multivitamin [Multivitamins] 1 each PO DAILY 04/14/19 [History] Acetaminophen/oxyCODONE [Percocet 325-5 MG] 1 - 2 tab PO Q6H PRN #12 tab 12/23/20 [Rx] Cyclobenzaprine [Flexeril] 10 mg PO TID PRN #7 tab 12/23/20 [Rx] buPROPion HCL [Bupropion Xl] 150 mg PO DAILY 12/23/20 [History] methylPREDNISolone [Medrol Dose Pack] 4 mg PO ASDIRECTED #1 dospk 12/23/20 [Rx] Past Medical History HEENT History: Reports: Impaired Vision Other HEENT History: corrective glasses Gastrointestinal History: Reports: GERD Other Gastrointestinal History: heart burn 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: Musculoskeletal History: Reports: Fracture, Other (See Below) Other Musculoskeletal History: hx fx R ankle, fx L wrist, hx carpal tunnel L wrist Psychiatric History: Reports: Anxiety, Depression Endocrine/Metabolic History: Reports: Obesity/BMI 30+ Hematologic History: Reports: Anemia Other Hematologic History: hemoglobin is at a nine - Infectious Disease History Infectious Disease History: Reports: Chicken Pox - Past Surgical History HEENT Surgical History: Reports: Oral Surgery Female Surgical History: Reports: Breast Reduction Dermatological Surgical History: Reports: Other (See Below) (Cyst removed from face) Social & Family History - Family History HEENT: Reports: Impaired Vision Cardiac: Reports: Hypertension Respiratory: Reports: Asthma, COPD GI: Reports: Colon Polyps, Diverticulosis, GERD OBGYN: Reports: , Other (See Below) Other OBGYN Family History: miscarriage, mother Musculoskeletal: Reports: Arthritis Neurological: Reports: Alzheimers Disease Psychiatric: Reports: Anxiety, Depression Immunologic: Reports: None Oncologic: Reports: Brain, Breast, Colon, Esophageal Other Oncologic Family History: uncle, aunts, grandmother, mom - Tobacco Use Tobacco Use Status *Q: Current Every Day Tobacco User - Caffeine Use Caffeine Use: Reports: None Other Caffeine Use: 3 cups daily - Alcohol Use Alcohol Use History: No - Living Situation & Occupation Living situation: Reports: ED ROS GENERAL - Review of Systems Review Of Systems: See Below Constitutional: Denies: Fever, Chills HEENT: Reports: Other (No nasal congestion). Denies: Throat Pain Respiratory: Denies: Shortness of Breath, Cough Cardiovascular: Denies: Chest Pain, Lightheadedness Endocrine: Denies: Polydypsia, Polyuria GI/Abdominal: Denies: Abdominal Pain, Nausea, Vomiting : Denies: Dysuria, Flank Pain, Hematuria Musculoskeletal: Reports: Back Pain Skin: Denies: Diaphoresis, Rash Neurological: Denies: Headache, Numbness, Weakness Psychiatric: Denies: Anxiety Hematologic/Lymphatic: Denies: Easy Bleeding, Easy Bruising ED EXAM,LOWER BACK PAIN/INJURY - Physical Exam Exam: See Below Exam Limited By: No Limitations General Appearance: Alert, Moderate Distress (Appears in some pain. She is nontoxic.), Obese Eye Exam: Bilateral Eye: EOMI, Normal Inspection, PERRL Ears: Normal External Exam, Hearing Grossly Normal Nose: Normal Inspection, Normal Mucosa, No Blood Throat/Mouth: Normal Oropharynx, Normal Voice, No Airway Compromise Head: Atraumatic, Normocephalic Neck: Normal Inspection, Supple, Non-Tender, Full Range of Motion Respiratory/Chest: No Respiratory Distress, Lungs Clear, Normal Breath Sounds, No Accessory Muscle Use, Chest Non-Tender Cardiovascular: Normal Peripheral Pulses, Regular Rate, Rhythm, No Murmur GI/Abdominal: Normal Bowel Sounds, Soft, Non-Tender, No Mass Back Exam: Decreased Range of Motion, Muscle Spasm, Paraspinal Tenderness (Bilateral lumbar paraspinous). No: Vertebral Tenderness Extremities: Normal Inspection, Normal Range of Motion, Non-Tender, No Pedal Edema, Normal Capillary Refill Neurological: Alert, Normal Mood/Affect, Normal Dorsiflexion, CN II-XII Intact, Normal Plantar Flexion, No Motor/Sensory Deficits, Oriented x 3 Psychiatric: Normal Affect Skin Exam: Warm, Dry, Intact, Normal Color, No Rash Course - Vital Signs Last Recorded V/S: Last Vital Signs Temp 36.6 C 12/23/20 13:18 Pulse 64 12/23/20 13:18 Resp 18 12/23/20 13:18 BP 113/62 12/23/20 13:18 Pulse Ox 96 12/23/20 13:18 - Orders/Labs/Meds Meds: Medications Discontinued Medications Generic Name Dose Route Start Last Admin Trade Name Freq PRN Reason Stop Dose Admin Hydrocodone Bitart/Acetaminophen 2 tab 12/23/20 13:54 12/23/20 14:06 Acetaminophen/Hydrocodone 325-5 Mg Tab PO 12/23/20 13:55 2 tab ONETIME ONE Administration Diazepam 5 mg 12/23/20 13:54 12/23/20 14:07 Diazepam 10 Mg/2 Ml Syringe IM 12/23/20 13:55 5 mg ONETIME ONE Administration Hydromorphone HCl 1 mg 12/23/20 15:41 12/23/20 15:52 Hydromorphone 2 Mg/Ml Sdv IM 12/23/20 15:42 1 mg ONETIME ONE Administration Ketorolac Tromethamine 30 mg 12/23/20 13:54 12/23/20 14:07 Ketorolac 30 Mg/Ml Sdv IM 12/23/20 13:55 30 mg ONETIME ONE Administration - Re-Assessments/Exams Free Text/Narrative Re-Assessment/Exam: 12/23/20 15:35: The patient's mobility is improved but she still has pain on her right lower back with sharp spasm-like pain when she attempts to bear weight and walk. I will give the patient Dilaudid 1 mg IM. The goal will be to improve her pain enough to improve her mobility and then the plan will be to discharge the patient with prescriptions of Percocet and Flexeril and I will also give the patient a Medrol Dosepak. 12/23/20 16:40: The patient is now able to stand after Dilaudid 1 mg IM was given. I am discharging the patient with the above prescriptions and with take home packs of the Percocet and Flexeril. Precautions and reasons for return to the emergency department were discussed with the patient while she was in the emergency department and were detailed in the patient's discharge instructions. Departure - Departure Time of Disposition: 16:45 Disposition: Home, Self-Care 01 Condition: Good (Improved) Clinical Impression: Back muscle spasm Acute lumbar myofascial strain Qualifiers: Encounter type: initial encounter Qualified Code(s): S39.012A - Strain of muscle, fascia and tendon of lower back, initial encounter - Discharge Information Prescriptions: Cyclobenzaprine [Flexeril] 10 mg PO TID PRN #7 tab PRN Reason: Muscle pain or muscle spasm methylPREDNISolone [Medrol Dose Pack] 4 mg PO ASDIRECTED #1 dospk Acetaminophen/oxyCODONE [Percocet 325-5 MG] 1 - 2 tab PO Q6H PRN #12 tab PRN Reason: Moderate to severe pain Instructions: Back Injury Prevention, [id number], Pain Medicine Instructions, [id number], Lumbosacral Strain, Muscle Cramps and Spasms, [id number] Referrals: Tolu Hartmann MD [Primary Care Provider] - Forms: ED Return to Work/School Form Additional Instructions: You appear to have an acute strain to your lower back with muscle spasms. With the pain going to your right buttock, this could represent a problem with a disc in your back. I have given you a note for no work until 12/27/2020 and no strenuous work until 12/31/2020. You should left with your primary doctor as you may need referral for physical therapy. You should begin doing gentle stretches of your back tomorrow. You should ambulate as tolerated. You can also take ibup rofen 600 mg by mouth every 6 hours as needed for pain. Medication as prescribed (/325, Flexeril 10 mg, Medrol Dosepak). Back to the emergency department for bowel or bladder control problems, fever, abdominal pain, unrelenting vomiting or any other concerning signs or symptoms. Sepsis Event Note (ED) - Focused Exam Vital Signs: Vital Signs Temp Pulse Resp BP Pulse Ox 12/23/20 13:18 36.6 C 64 18 113/62 96
[2020-12-23] MEDS ORDERED: Acetaminophen/HYDROcodone 325-5 MG Tab PO ONE (13:54)
[2020-12-23] MEDS ORDERED: Ketorolac 30 MG/ML SDV IM ONE (13:54)
[2020-12-23] MEDS ORDERED: HYDROmorphone 2 MG/ML SDV IM ONE (15:41)
[2020-12-23 17:05] VITALS: BP 110/60; PULSE 60
== END 2020-12-23 17:00 | disposition home or self-care (01) ==
LOC: FB.ED 13:17
DX: S39.012A Strain of muscle, fascia and tendon of lower back, initial encounter (principal); E66.9 Obesity, unspecified; K21.9 Gastro-esophageal reflux disease without esophagitis; Z68.30 Body mass index [BMI] 30.0-30.9, adult; Z88.2 Allergy status to sulfonamides; Z88.5 Allergy status to narcotic agent; Z79.899 Other long term (current) drug therapy; X58.XXXA Exposure to other specified factors, initial encounter
CPT/HCPCS: 96372; 99284; A9270; J1170; J1885; J3360

== ENCOUNTER 2021-06-12 17:24 | Emergency (ER) | payer OTHER, MEDICAID ==
[2021-06-12] MEDS ORDERED: Ketorolac 30 MG/ML SDV IM STA ×2 (17:39→17:43)
[2021-06-12] MEDS ORDERED: Cyclobenzaprine 10 MG Tab PO STA (17:39)
[2021-06-12 17:54] VITALS: BP 107/72; PULSE 83
--- NOTE | 2021-06-12 18:01 | EDM.PDOC ---
ED HPI GENERAL MEDICAL PROBLEM - General Chief Complaint: Back Pain or Injury Stated Complaint: BACK PAIN Time Seen by Provider: 06/12/21 17:45 Source of Information: Reports: Patient History Limitations: Reports: No Limitations - History of Present Illness INITIAL COMMENTS - FREE TEXT/NARRATIVE: Patient presented to the ED because of low back pain for 2 weeks. She has a history of chronic LBP and is seeing a chiropractor and CBD treatment which help for a while. She took OTC tylenol without any relief. 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 Lower back Pain Score (Numeric/FACES): 9 - Related Data Allergies Allergy/AdvReac Type Severity Reaction Status Date / Time Sulfa (Sulfonamide Allergy Nausea and Verified 06/12/21 17:50 Antibiotics) Vomiting tramadol Allergy Itching Verified 06/12/21 17:50 Home Meds: Home Meds FLUoxetine [PROzac] 40 mg PO DAILY 10/02/17 [History] Pantoprazole [ProTONIX] 40 mg PO DAILY 10/02/17 [History] Multivitamin [Multivitamins] 1 each PO DAILY 04/14/19 [History] buPROPion HCL [Bupropion Xl] 150 mg PO DAILY 12/23/20 [History] Cyclobenzaprine [Flexeril] 10 mg PO TID PRN #30 tab 06/12/21 [Rx] Ibuprofen 800 mg PO TID PRN #30 tablet 06/12/21 [Rx] Past Medical History - Past Health History Medical/Surgical History: Denies Medical/Surgical History HEENT History: Reports: Impaired Vision Other HEENT History: corrective glasses Gastrointestinal History: Reports: GERD Other Gastrointestinal History: heart burn 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: Musculoskeletal History: Reports: Fracture, Other (See Below) Other Musculoskeletal History: hx fx R ankle, fx L wrist, hx carpal tunnel L wrist Psychiatric History: Reports: Anxiety, Depression Endocrine/Metabolic History: Reports: Obesity/BMI 30+ Hematologic History: Reports: Anemia Other Hematologic History: hemoglobin is at a nine Dermatologic History: Reports: Other (See Below) Other Dermatologic History: cyst removed on face - Infectious Disease History Infectious Disease History: Reports: Chicken Pox - Past Surgical History Dermatological Surgical History: Reports: Other (See Below) (Cyst removed from face) Social & Family History - Family History Family Medical History: No Pertinent Family History HEENT: Reports: Impaired Vision Cardiac: Reports: Hypertension Respiratory: Reports: Asthma, COPD GI: Reports: Colon Polyps, Diverticulosis, GERD OBGYN: Reports: , Other (See Below) Other OBGYN Family History: miscarriage, mother Musculoskeletal: Reports: Arthritis Neurological: Reports: Alzheimers Disease Psychiatric: Reports: Anxiety, Depression Immunologic: Reports: None Oncologic: Reports: Brain, Breast, Colon, Esophageal Other Oncologic Family History: uncle, aunts, grandmother, mom - Caffeine Use Caffeine Use: Reports: Coffee Other Caffeine Use: 3 cups daily - Living Situation & Occupation Living situation: Reports: ED ROS GENERAL - Review of Systems Review Of Systems: See Below Constitutional: Reports: No Symptoms HEENT: Reports: No Symptoms Respiratory: Reports: No Symptoms Cardiovascular: Reports: No Symptoms Endocrine: Reports: No Symptoms GI/Abdominal: Reports: No Symptoms : Reports: No Symptoms Musculoskeletal: Reports: Back Pain Skin: Reports: No Symptoms Neurological: Reports: No Symptoms Psychiatric: Reports: No Symptoms ED EXAM,LOWER BACK PAIN/INJURY - Physical Exam Exam: See Below Exam Limited By: No Limitations General Appearance: Alert, No Apparent Distress Eye Exam: Bilateral Eye: PERRL Ears: Normal External Exam, Normal Canal Nose: Normal Inspection, Normal Mucosa, No Blood Throat/Mouth: Normal Inspection, Normal Lips, Normal Teeth Head: Atraumatic, Normocephalic Neck: Normal Inspection, Supple, Non-Tender, Full Range of Motion Respiratory/Chest: No Respiratory Distress, Lungs Clear, Normal Breath Sounds, No Accessory Muscle Use, Chest Non-Tender Cardiovascular: Normal Peripheral Pulses, Regular Rate, Rhythm, No Edema, No Gallop, No JVD, No Murmur, No Rub GI/Abdominal: Normal Bowel Sounds Back Exam: Normal Inspection, Full Range of Motion, Muscle Spasm, Paraspinal Tenderness Extremities: Normal Inspection, Normal Range of Motion, Non-Tender, No Pedal Edema, Normal Capillary Refill Neurological: Alert, Normal Mood/Affect, Normal Dorsiflexion, CN II-XII Intact, Normal Plantar Flexion, Normal Gait Course - Vital Signs Text/Narrative:: Toradol 60 mg IM x1 Flexeril 10 mg PO x1 Last Recorded V/S: Last Vital Signs Temp 36.6 C 06/12/21 17:45 Pulse 83 06/12/21 17:45 Resp 18 06/12/21 17:45 BP 107/72 06/12/21 17:45 Pulse Ox 97 06/12/21 17:45 - Orders/Labs/Meds Meds: Medications Discontinued Medications Generic Name Dose Route Start Last Admin Trade Name Jhonathan PRN Reason Stop Dose Admin Cyclobenzaprine HCl 10 mg 06/12/21 17:39 06/12/21 17:54 Cyclobenzaprine 10 Mg Tab PO 06/12/21 17:40 10 mg NOW STA Administration Ketorolac Tromethamine 30 mg 06/12/21 17:39 Ketorolac 30 Mg/Ml Sdv IM 06/12/21 17:40 NOW STA Ketorolac Tromethamine 60 mg 06/12/21 17:43 06/12/21 17:55 Ketorolac 30 Mg/Ml Sdv IM 06/12/21 17:44 60 mg NOW STA Administration Departure - Departure Time of Disposition: 18:30 Disposition: Home, Self-Care 01 Condition: Good Clinical Impression: Chronic low back pain, Sciatica - Discharge Information Prescriptions: Cyclobenzaprine [Flexeril] 10 mg PO TID PRN #30 tab PRN Reason: Spasms Ibuprofen 800 mg PO TID PRN #30 tablet PRN Reason: Pain Instructions: Acute Back Pain, Adult, Sciatica, [id number] Referrals: Tolu Hartmann MD [Primary Care Provider] - Forms: ED Department Discharge Additional Instructions: Please read discharge instructions on low back pain and sciatica Apply ice or heat whichever you prefer Take all the following medicines at the same time for better pain relief: Ibuprofen 800 mg, tylenol 1000 mg, flexeril 10 mg 3 times daily as needed for pain and spasms Follow up as needed Sepsis Event Note (ED) - Evaluation Sepsis Screening Result: No Definite Risk
== END 2021-06-12 18:30 | disposition home or self-care (01) ==
LOC: FB.ED 17:24
DX: M54.40 Lumbago with sciatica, unspecified side (principal); K21.9 Gastro-esophageal reflux disease without esophagitis; E66.9 Obesity, unspecified; Z68.36 Body mass index [BMI] 36.0-36.9, adult; Z88.2 Allergy status to sulfonamides; Z88.5 Allergy status to narcotic agent; Z79.899 Other long term (current) drug therapy
CPT/HCPCS: 96372; 99283; A9270-GY; J1885